=== PATIENT | male | born 1975 | race Caucasian/White ===

== ENCOUNTER 2017-03-31 12:58 | Day surgery (SDC) | payer OTHER ==
[~2017-03-31] VITALS: Ht 175.3 cm; Wt 96.9 kg
[~2017-03-31 12:58] MED LIST: NEXIUM 40MG40 MG PO
[2017-03-31 13:40] VITALS: BP 115/75; PULSE 45; TEMP 97.8
[2017-03-31] MEDS ORDERED: LIPITOR 40MG TA40 MG PO (13:53)
[2017-03-31 14:40] VITALS: BP 117/85; PULSE 71; TEMP 97.8
[2017-03-31 14:55] VITALS: BP 114/81; PULSE 64
[2017-03-31 15:10] VITALS: BP 114/90; PULSE 64
[2017-03-31] MEDS ORDERED: PRILOSEC 20MG20 MG PO (15:14)
[2017-03-31 15:25] VITALS: BP 118/78; PULSE 59
== END 2017-03-31 15:34 | disposition home or self-care (01) ==
LOC: SDCO 12:58
DX: K22.70 Barrett's esophagus without dysplasia (principal); K44.9 Diaphragmatic hernia without obstruction or gangrene; K21.9 Gastro-esophageal reflux disease without esophagitis; E78.00 Pure hypercholesterolemia, unspecified
CPT/HCPCS: OP; J2250; J3010; J7030